=== PATIENT | female | born 1960 | race Caucasian/White ===

== ENCOUNTER 2017-07-16 10:27 | Emergency (ER) | payer OTHER ==
[~2017-07-16] VITALS: Ht 175.3 cm; Wt 111.7 kg
[2017-07-16 10:37] VITALS: BP 140/75
--- NOTE | 2017-07-16 10:40 | NUR ---
PATIENT PRESENTS TO ED WITH c/o jaw pain . PT STATES her pain started when her tooth broke since tuesday . DENIES N/V/D; SKIN IS PINK/WARM/DRY; AAOX4 WITH EVEN AND STEADY GAIT; LUNGS CLEAR BL; HR EVEN AND REGULAR; PT DENIES ANY FEVER, CP, SOB, OR COUGH AT THIS TIME; PATIENT STATES PAIN OF 5/10 AT THIS TIME; VSS; PATIENT POSITIONED FOR COMFORT; HOB ELEVATED; BEDRAILS UP X2; BED DOWN. ER MD MADE AWARE OF PT STATUS.
--- NOTE | 2017-07-16 10:42 | NUR ---
Dr. Carrasquillo evaluating patient at bedside.
--- NOTE | 2017-07-16 10:42 | NUR ---
Patient ambulated to bed 8. RN evaluating patient at bedside.
[2017-07-16 11:01] VITALS: BP 100/72
--- NOTE | 2017-07-16 11:03 | NUR ---
Patient discharged with v/s stable. Written and verbal after care instructions given and explained. Patient alert, oriented and verbalized understanding of instructions. Ambulatory with steady gait. All questions addressed prior to discharge. ID band removed. Patient advised to follow up with PMD. Rx of naprosyn, tylenol with codeien no 3, augmentin given. Patient educated on indication of medication including possible reaction and side effects. Opportunity to ask questions provided and answered.
== END 2017-07-16 11:03 | disposition home or self-care (01) ==
LOC: MED 10:27
DX: S02.5XXA Fracture of tooth (traumatic), initial encounter for closed fracture (principal); K04.7 Periapical abscess without sinus; I10 Essential (primary) hypertension; E78.00 Pure hypercholesterolemia, unspecified; X58.XXXA Exposure to other specified factors, initial encounter; Y93.89 Activity, other specified; Y92.89 Other specified places as the place of occurrence of the external cause; Y99.8 Other external cause status
CPT/HCPCS: 99283